=== PATIENT | male | born 1955 | race Caucasian/White ===

== ENCOUNTER 2017-01-20 00:08 | Day surgery (SDC) | payer MEDICARE, MEDICAID ==
[~2017-01-20] VITALS: Ht 182.9 cm; Wt 98.2 kg
[2017-01-20] VITALS (12 sets, daily range): BP systolic 100–131; BP diastolic 64–81; PULSE 60–62; RESP 12–18; O2SAT 95–98
[~2017-01-20 00:08] MED LIST: ALBU18HF INH; ALBU6.7H INH; AMLO10TA3 PO; ASPI81TA3 PO; CHOL500011 PO; CINA30TA PO; DOXE2.5C PO; FUR20 PO; GENT30OI2 TP; ISOS60TA2 PO; KEN25CR EXT; KLO1T PO; LACT10SO60 PO; LEVO50TA6 PO; LISI40TA PO; LORA0.5T PO; LORA10CA9 PO; METO25TA6 PO; NITR0.4T SL; OMEP40CA36 PO; OXYC-474 PO; RES15 PO; SELE120S3 EXT; SEVE800T7 PO; TRAZ-115 PO
[2017-01-20] MEDS ORDERED: 0.9% Sodium Chloride 1,000 ML IV ONE (06:14)
[2017-01-20 07:16] LABS: Mean Corpuscular Hemoglobin 31.8 pg (27.0-35.0); Mean Corpuscular Volume 97.4 fL (81-100)
[2017-01-20 07:17] LABS: BASOPHILS % (AUTO) 0.7 % (0-3); EOSINOPHILS % (AUTO) 4.6 % (0-5); MONOCYTES % (AUTO) 12.5 % (4-12); NEUTROPHILS % (AUTO) 62.7 % (40-74); Platelet Count 62 bil/L (150-400)
[2017-01-20] MEDS ORDERED: CHOL500050 PO (07:40)
[2017-01-20] MEDS ORDERED: Heparin 1,000 Units/500 mL NS Premix IV ONE (08:21)
[2017-01-20] MEDS ORDERED: Heparin 10,000 Unit/1,000 mL NS Premix IV ONE (08:21)
[2017-01-20] MEDS ORDERED: fentaNYL-PF 50 mCg/mL 2 mL Inj ONE (08:54)
[2017-01-20] MEDS ORDERED: 0.9% Sodium Chloride 1,000 ML IV PRN (09:27)
[2017-01-20] MEDS ORDERED: 0.9% Sodium Chloride 250 ML IV PRN (09:27)
[2017-01-20] MEDS ORDERED: Atropine 1 mg/10 mL (Code) Syringe IVPUSH PRN (09:30)
[2017-01-20] MEDS ORDERED: Ondansetron 2 mg/mL 2 mL Inj IVPUSH PRN (09:30)
[2017-01-20] MEDS ORDERED: HYDROcodone-APAP 5-325 mg Tablet PO PRN (09:30)
[2017-01-20] MEDS ORDERED: ISOS120T6 PO (10:26)
[2017-01-20] MEDS ORDERED: CLOP75TA28 PO (10:26)
[2017-01-20] MEDS ORDERED: ATRV10T PO (10:26)
--- NOTE | 2017-01-20 11:55 | PCM.CVCATH ---
Cardiac Cath Report Date of Service Jan 20, 2017 Primary Indication This is a 61-year-old male with history of coronary artery disease diagnosed by CT scans. He has had a prior ischemic evaluation which was negative. However he presents now with classic angina usually on exertion or with anxiety. He is here for coronary angiogram for more definite assessment. Procedure 1 Left heart catheterization 2. Selective coronary angiograms 3. Right femoral angiogram with ultrasound guidance Vascular Access Right common femoral artery Procedure Details The patient was brought into the catheterization laboratory. The patient was nothing by mouth since midnight. The patient was prepped and sterilized in the appropriate fashion. Local anesthetic was given to the right groin region with lidocaine 1%. A percutaneous stick to the right groin region with a micropuncture kit was attempted. There were some difficulties so an ultrasound was use for guidance. A 5 Luxembourger sheath was inserted into the right femoral artery. A 5 Luxembourger FL 4 diagnostic catheter was advanced and engaged into the left main. The left coronary angiography was performed in multiple views. The catheter was exchanged over the wire for a 5 Luxembourger FR4 diagnostic catheter. The catheter was engaged in the right coronary ostium and the right coronary angiography was performed in multiple views. The catheter was removed over the wire and exchanged for 5 Luxembourger angle pigtail catheter. LV hemodynamics were recorded. LV pullback was performed. All catheters were removed. The right femoral angiogram was performed to evaluate for closure device. Hemostasis was obtained with Perclose. The patient was transferred back to special observation unit for post procedural monitoring. There were no immediate complications. Total fluoroscopy time: 2.3 minutes Total fluoroscopy dosage: 806 mGy Estimated blood loss: 20 mL Total contrast: 50 mL Findings 1. Hemodynamics: The left ventricular systolic pressure was estimated at 118mmHg and the left ventricular end-diastolic pressure was estimated at 15 mmHg. There is no significant gradient during pullback. The aortic systemic pressure is 107/68 mmHg. 2. Selective coronary angiography: A. Left main: There artery has no evidence of significant disease. It bifurcates into the left anterior descending and left circumflex arteries. B. Left anterior descending artery: Near the ostium there is a 20% stenosis. The rest of the LAD does not have any significant disease. C. Left circumflex artery: The proximal left circumflex artery there is a long tubular stenosis estimated anywhere between 20-30%. Moving along a large marginal branch that bifurcates multiple times there is a 50% stenosis in the midportion. Otherwise the rest of the marginal artery has no evidence of significant disease. D. Right coronary artery: The right coronary artery is a dominant vessel. At the ostium there is some disease but not to appreciate any significant stenosis. In the proximal midportion there is a 95% long stenosis. In the midportion there is a 70-80% stenosis. In the distal RCA including the PDA and posterior lateral branch artery, there is some diffuse disease but no evidence of significant stenosis. 3. Right femoral angiogram: The SFA has mild diffuse disease in the proximal portion. Summary 1. Severe proximal mid RCA stenosis and moderate severe stenosis in the midportion RCA. 2. Otherwise there is no evidence of significant coronary artery disease. Recommendations Patient has severe disease in the RCA that is most likely causing his symptoms. He is doing quite well on the moderate dose of Imdur. I will like to increase his Imdur to 120 mg once a day, start him on low-dose atorvastatin given the history of his mildly elevated LFTs and liver mass, and start him on Plavix 75 mg on top of his aspirin, to see this affects his chronic thrombocytopenia. The patient will be referred to an interventionalist to discuss about potential PCI of the proximal mid RCA. The patient has end-stage renal disease but still makes urine and would wish to remain this way if possible. For this reason I deferred PCI and as well as his complex history which includes thrombocytopenia. If patient continues to have significant exertional chest discomfort and he is able to tolerate aspirin and Plavix, then one may consider PCI of his RCA. Rhys Su MD Jan 20, 2017 11:55
--- NOTE | 2017-01-20 12:05 | NUR ---
Discharge instructions reviewed with patient and his cousin. He has been off bedrest as of 11:45. Right groin remains stable.Pt to be discharged ambulatory and his cousin to drive him home. I reiterated with him to not drive today, and tomorrow if that is possible. also cautioned him about not straining himself, to support right groin over the next 2 days,during bowel movements or if he laughs,cough, sneezes.
--- NOTE | 2017-01-20 12:10 | NUR ---
discharged ambulatory.
== END 2017-01-20 23:59 | disposition home or self-care (01) ==
LOC: SOUO 00:08
PROVIDERS: ATTEND Internal Medicine Cardiovascular Disease
DX: I25.119 Atherosclerotic heart disease of native coronary artery with unspecified angina pectoris (principal); I15.1 Hypertension secondary to other renal disorders; I13.11 Hypertensive heart and chronic kidney disease without heart failure, with stage 5 chronic kidney disease, or end stage renal disease; N18.6 End stage renal disease; K74.60 Unspecified cirrhosis of liver; B19.20 Unspecified viral hepatitis C without hepatic coma; D69.6 Thrombocytopenia, unspecified; I44.2 Atrioventricular block, complete; Z95.0 Presence of cardiac pacemaker; F17.210 Nicotine dependence, cigarettes, uncomplicated; Z79.82 Long term (current) use of aspirin; Z99.2 Dependence on renal dialysis
CPT/HCPCS: 36415; 80048; 85025; 93458; 99152; 99153; C1760; C1769; J1200; J1644; J2060; J2250; J3010; Q9967

== ENCOUNTER 2017-02-10 00:42 | Day surgery (SDC) | payer MEDICARE, MEDICAID ==
[~2017-02-10] VITALS: Ht 182.9 cm; Wt 100.6 kg
[2017-02-10] VITALS (32 sets, daily range): BP systolic 100–140; BP diastolic 68–95; PULSE 60–68; RESP 12–16; O2SAT 95–100
[~2017-02-10 00:42] MED LIST changes: -ALBU18HF INH; +ATRV10T PO; -CHOL500011 PO; +CHOL500050 PO; +CLOP75TA28 PO; +ISOS120T6 PO; -ISOS60TA2 PO; -LORA10CA9 PO; -SELE120S3 EXT
[2017-02-10] MEDS ORDERED: Heparin 1,000 Units/500 mL NS Premix IV ONE (11:45)
[2017-02-10] MEDS ORDERED: Heparin 10,000 Unit/1,000 mL NS Premix IV ONE (11:45)
[2017-02-10] MEDS ORDERED: Heparin 1,000 Unit/mL 10 mL Inj ONE (11:45)
[2017-02-10 12:05] LABS: BASOPHILS % (AUTO) 0.4 % (0-3); EOSINOPHILS % (AUTO) 8.5 % (0-5); MONOCYTES % (AUTO) 13.9 % (4-12); Mean Corpuscular Hemoglobin 31.7 pg (27.0-35.0); Mean Corpuscular Volume 97.5 fL (81-100); NEUTROPHILS % (AUTO) 55.7 % (40-74); Platelet Count 65 bil/L (150-400)
[2017-02-10] MEDS ORDERED: Nitroglycerin 50,000 mcg/250 mL D5W Premix IV ONE (12:27)
--- NOTE | 2017-02-10 12:34 | NUR ---
[facility] Patient admitted to [facility] at 1130 for heart cath, accompanied by cousin Ruby. Patient denies pain. HL x 2 placed, labs obtained and MD notified of results. Consent confirmed. ECG 12 complete. History and medication reviewed. pre-procedure teaching done and questions answered.
[2017-02-10] MEDS ORDERED: fentaNYL-PF 50 mCg/mL 2 mL Inj ONE (13:04)
[2017-02-10] MEDS ORDERED: Atropine 1 mg/10 mL (Code) Syringe ONE (13:18)
--- NOTE | 2017-02-10 14:08 | DI95 ---
[place] [address] INTERVENTIONAL CARDIAC CATHETERIZATION PATIENT: DENISE KNOWLES : 1955 MR#: [id number] ADMIT: 02/10/2017 JOB ID: [id number] DATE: 02/10/2017 PATIENT PROFILE: The patient is a 61-year-old male with history of hypertension, cirrhosis of the liver, hepatitis C and end-stage renal disease on hemodialysis. He was found to have critical stenosis of the proximal right coronary artery. PROCEDURE: Balloon angioplasty and stenting to the proximal right coronary artery. VASCULAR CLOSURE DEVICE: StarClose. COMPLICATIONS: None. METHOD: Arterial access was obtained from the right groin under 1% lidocaine local anesthesia using a 6-Cymro sheath. This was performed under ultrasound guidance. Heparin 10,000 units were given. A 6-Cymro JR-4 guide was advanced to the right coronary ostium. A Run-through wire was placed inside the right coronary artery. The lesion was pre-dilated with a 2.5 x 15 mm balloon. A Resolute Jackson 3.0 x 18 mm stent was placed inside the lesion and deployed at 21 atmospheres for 20 seconds. Final angiogram was obtained. Right femoral angiogram was performed. Following sheath removal, hemostasis was achieved by using a StarClose device. The patient tolerated the procedure well. He was transferred to [facility] in good condition. TOTAL CONTRAST USED: 25 cc. FLUOROSCOPY TIME: 1.5 minutes. RESULTS: Successful balloon angioplasty and stenting to the critical proximal right coronary artery lesion by deploying one drug-eluting stent to achieve an excellent angiographic result with GEORIGA-3 flow distally. PLAN: The patient will be on Plavix 75 mg once daily for three months without aspirin due to thrombocytopenia. [facility]
--- NOTE | 2017-02-10 16:45 | NUR ---
[facility] Patient return from [employer] to [facility] at 1400. Denies pain at that time. At 1415 significant ooze noted requiring manual hold by CL tech X 20 min. No hematoma noted. Pedal pulses present. Pressure dressing applied and no further bleeding. Patent sleeping quietly. Cousin Jazmin came to bedside and woke patient who told her he was having chest pain. Patient reported it was a 4/10. MD notified, stat ECG obtained and MS given.
--- NOTE | 2017-02-10 18:49 | NUR ---
[facility] Bleeding recurred at 1655. Manual pressure pr diesel truck technician. No further bleeding noted post manual with foam and gauze dressing. Continues to report 2-3/10 chest pain. MD updated on patient condition. No new orders. Patient refusing at this time to use bedpan or urinal.
[2017-02-10] MEDS ORDERED: Sodium Chloride LOK Flush 10 mL Syringe IVFLUSH PRN (19:50)
[2017-02-10] MEDS ORDERED: 0.9% Sodium Chloride 400 ML (4 HRS) IV ONE (19:50)
[2017-02-10] MEDS ORDERED: Ondansetron 2 mg/mL 2 mL Inj IVPUSH PRN (19:50)
[2017-02-10] MEDS ORDERED: Atropine 1 mg/10 mL (Code) Syringe IVPUSH PRN (19:50)
[2017-02-10] MEDS ORDERED: 0.9% Sodium Chloride 250 ML BOLUS IV PRN (19:50)
--- NOTE | 2017-02-10 20:14 | NUR ---
[facility] Patient transferred by bed to room 2026 at 1930. Report to receiving RN. No bleeding or hematoma at that time. Continues unable to void since return from ship laborer. Children at bedside.
[2017-02-10] MEDS ORDERED: Lactulose 20 Gm/30 mL 30 mL Syrup PO PRN (20:45)
[2017-02-10] MEDS ORDERED: Albuterol 2.5 mg/3 mL Inhalation Solution NEB PRN (21:00)
[2017-02-10] MEDS ORDERED: LORazepam 0.5 mg Tablet PO PRN (21:40)
--- NOTE | 2017-02-11 02:07 | NUR ---
Transfer to [facility]/Anxiety/Groin site/UOP Pt transferred to [facility] around shift change, vitals stable, no c/o chest pain, pt verbalized understanding to inform nursing of any pain or new symptoms. Pt did c/o 3-10/11 generalized achiness and back pain, reports as chronic pain. Was awaiting verification of home pain med management from pharmacy at time and after given sleep medication did not voice need for pain medication. Per report, MD wished to have pt to be bedrest overnight d/t persistent oozing at groin site, pt anxious about this as he felt he would not be able to do this all night. After given home sleep/anxiety meds, has been able to sleep comfortably between care interventions. Groin site has no new oozing noted up until this time, right pedal pulse very weak but palpable, not different from LENORA assessment per [facility] nurse. Pulse also checked and heard w/ doppler. No s/sx of hematoma. Pt compliant w/ bedrest and precautions. Pt able to urinate adequate amounts using urinal. W/ latest assessment, no change in groin site, pt denies need for anxiety/pain meds. Ongoing care. Addendum: 02/11/17 at 0428 by PHILLIP WINTER RN W/ latest assessment pt denies need for pain/anxiety meds, again pt verbalized understanding to report any new symptoms, especially chest pain, to nursing. Right groin site unchanged, pt remains bedrest, no new oozing noted, small sero-sang spot on right side of gauze has not changed throughout night. Will continue to monitor.
[2017-02-11 03:38] VITALS: BP 137/78; PULSE 67; RESP 20; O2SAT 96
[2017-02-11 04:20] LABS: Mean Corpuscular Hemoglobin 31.9 pg (27.0-35.0); Mean Corpuscular Volume 99.1 fL (81-100)
[2017-02-11 04:55] VITALS: PULSE 63
[2017-02-11] MEDS ORDERED: Isosorbide Mononitrate 60 mg ER24 Tablet PO SCH (07:30)
[2017-02-11 07:59] VITALS: PULSE 82
[2017-02-11 08:03] VITALS: PULSE 66
[2017-02-11 08:23] VITALS: BP 150/88; PULSE 70; RESP 18; O2SAT 96
[2017-02-11] MEDS ORDERED: Pantoprazole 40 mg ER24 Tablet PO SCH (08:30)
--- NOTE | 2017-02-11 14:49 | DIS ---
[address] [address] DISCHARGE SUMMARY PATIENT: DENISE KNOWLES : 1955 MR#: [id number] ADMIT: 02/10/2017 JOB ID: [id number] DIS: 02/11/2017 ADMITTING DIAGNOSIS: Coronary artery disease with critical right coronary artery stenosis. DISCHARGE STENOSIS: Coronary artery disease with critical right coronary artery stenosis. SECONDARY DIAGNOSES: 1. End-stage renal disease on peritoneal dialysis. 2. Cirrhosis of the liver. 3. Chronic hepatitis C. 4. Hypertension. 5. COPD. 6. Obesity with BMI of 30.1 kg/m2. 7. History of smoking. 8. Left renal cell carcinoma. 9. Thrombocytopenia. PROCEDURE: Balloon angioplasty and stenting to the proximal right coronary artery. COMPLICATION: None. HISTORY: Please see the detailed history in the accompanying office note dated January 27, 2017. The patient underwent elective coronary intervention to the critical proximal right coronary artery by deploying one drug eluting stent (Jackson 3.0 x 18 mm) to achieve an excellent angiographic result. The patient was discharged from the hospital on the following day in good condition. His discharge medication remained the same with the exception of aspirin was discontinued. He should be on Plavix 75 mg every other day due to thrombocytopenia. His platelet count was 65 on admission and came down to 56 on discharge date. The patient will followup with Dr. Su in a couple weeks. He was referred to outpatient cardiac rehab. MARGARET
== END 2017-02-11 12:13 | disposition home or self-care (01) ==
LOC: SOUO 00:42 → PCC 18:48 → SOUO 02-11 12:13
PROVIDERS: ATTEND Internal Medicine Interventional Cardiology
DX: I25.118 Atherosclerotic heart disease of native coronary artery with other forms of angina pectoris (principal); I12.0 Hypertensive chronic kidney disease with stage 5 chronic kidney disease or end stage renal disease; N18.6 End stage renal disease; J44.9 Chronic obstructive pulmonary disease, unspecified; K74.69 Other cirrhosis of liver; B18.2 Chronic viral hepatitis C; D69.6 Thrombocytopenia, unspecified; E66.9 Obesity, unspecified; Z68.30 Body mass index [BMI] 30.0-30.9, adult; C64.2 Malignant neoplasm of left kidney, except renal pelvis; I44.2 Atrioventricular block, complete; Z95.0 Presence of cardiac pacemaker; Z79.82 Long term (current) use of aspirin; Z79.02 Long term (current) use of antithrombotics/antiplatelets; Z99.2 Dependence on renal dialysis; Z87.891 Personal history of nicotine dependence
CPT/HCPCS: 36415; 80048; 85025; 85027; 93005; 94664; 99152; C1725; C1760; C1769; C1874; C1887; C9600; J1644; J2250; J2270; J3010; J7030; Q9967